=== PATIENT | female | born 1990 | race Caucasian/White ===

== ENCOUNTER 2016-10-01 22:32 | Emergency (ER) | payer OTHER ==
[2016-10-01 22:39] VITALS: BP 141/80; PULSE 88; RESP 16; TEMP 98.2; O2SAT 97
--- NOTE | 2016-10-01 23:11 | EDPHY ---
H & P Stated Complaint: may have a tampon stuck in vagina since friday Time Seen by Provider: 10/01/16 22:41 HPI/ROS: HPI The patient presents with concern that she has a tampon in her vaginal vault. She is not having any symptoms but thinks in the middle of the night she may have inserted a 2nd tampon, about 4 days ago. She reports mild nausea, though denies any other symptoms. She is visiting from out of town and would like to be checked. She is sexually active, she does not have any vaginal discharge or bleeding. REVIEW OF SYSTEMS Constitutional: No fever, no chills. Eyes: No discharge. ENT: No sore throat. Cardiovascular: No chest pain, no palpitations. Respiratory: No cough, no shortness of breath. Gastrointestinal: No abdominal pain, no vomiting. Genitourinary: No hematuria. Musculoskeletal: No back pain. Skin: Positive for rash on her right arm and leg, seeing a peanut roaster soon Neurological: No headache. PMHx: Healthy Soc Hx: Visiting from [place], works for [employer] PHYSICAL General Appearance: Alert, no distress ENT, Mouth: Mucous membranes moist Respiratory: breathing comfortably Gastrointestinal: Abdomen is soft and non-tender, no masses, bowel sounds normal Pelvic: No foreign body visualized in vaginal vault, normal appearing cervix Neurological: A&O, moves all extremities Skin: Warm and dry Psychiatric: Patient is oriented X 3, there is no agitation Source: Patient Exam Limitations: No limitations - Personal History LMP (Females 10-55): 1-7 Days Ago Current Tetanus Diphtheria and Acellular Pertussis (TDAP): Yes - Medical/Surgical History Hx Asthma: No Hx Chronic Respiratory Disease: No Hx Diabetes: No Hx Cardiac Disease: No Hx Renal Disease: No Hx Cirrhosis: No Hx Alcoholism: No Hx HIV/AIDS: No Hx Splenectomy or Spleen Trauma: No Other PMH: denies - Social History Smoking Status: Current some day smoker Constitutional: Initial Vital Signs Temperature (C) 36.8 C 10/01/16 22:36 Heart Rate 88 10/01/16 22:36 Respiratory Rate 16 10/01/16 22:36 Blood Pressure 141/80 H 10/01/16 22:36 O2 Sat (%) 97 10/01/16 22:36 O2 Delivery Mode Room Air Allergies/Adverse Reactions: No Known Allergies Allergy (Unverified 10/01/16 22:35) Home Medications: Medication Instructions Recorded NK [No Known Home Meds] 10/01/16 [id number] 10/01/16 Medical Decision Making Differential Diagnosis: This is a 25-year-old female who presents with concern for retained tampon. She is not sure if she placed a 2nd tampon about 4 days ago. She is not having any symptoms. Physical exam with speculum demonstrates no retained tampon. She will be discharged from the emergency room. Departure - Departure Disposition: Home, Routine, Self-Care Clinical Impression: Vaginal pain Condition: Good Instructions: Vaginal Discharge (ED) Additional Instructions: Please return to the emergency room if your worse in any way. Referrals: NONE *PRIMARY CARE P,. [Primary Care Provider] - As per Instructions
== END 2016-10-01 23:23 | disposition home or self-care (01) ==
DX: R10.2 Pelvic and perineal pain (principal); F17.200 Nicotine dependence, unspecified, uncomplicated